=== PATIENT | female | born 1935 | race Caucasian/White ===

== ENCOUNTER 2019-03-13 11:23 | Inpatient (IN) ==
[2019-03-13] MEDS ORDERED: NS 1,000 ML IV ONE ×3 (11:30→14:33)
--- NOTE | 2019-03-13 11:32 | EKG Report ---
Test Performed on : 03/13/2019 11:26:52 AM Test Reason : syncope Blood Pressure : / mmHG Vent. Rate : 127 BPM Atrial Rate : 264 BPM P-R Int : 000 ms QRS Dur : 082 ms QT Int : 170 ms P-R-T Axes : 199 033 204 degrees QTc Int : 247 ms Atrial flutter. with variable AV block. Marked ST abnormality, possible inferior subendocardial injury Abnormal ECG When compared with ECG of 01-JUN-2017 20:10, Significant changes have occurred Unconfirmed Result
[2019-03-13] MEDS ORDERED: LOPRESSOR IV ONE ×2 (11:40→14:33)
[2019-03-13 11:59] LABS: BASO# 0.02 X1000 (0.0-0.2); BASO% 0.2 % (0.0-0.8); EOS# 0.28 X1000 (0.0-0.7); EOS% 2.7 % (0.0-10.0); HEMATOCRIT 38.2 % (37.0-47.0); LYMPH# 1.98 X1000 (1.2-3.4); LYMPH% 18.8 % (20.5-51.1); MCH 31.6 PG (27-31); MCV 92.7 FL (81-99); MONO# 1.45 X1000 (0.11-0.59); MONO% 13.8 % (1.7-9.3); MPV 11.7 FL (7.4-10.4); NEUT# 6.79 X1000 (1.4-6.5); NEUT% 64.5 % (42.2-75.2); PLT 288 X1000 (130-400); RBC 4.12 XMIL (4.2-5.4); RDW 12.7 % (11.5-14.5); WBC 10.52 X1000 (4.8-10.8)
--- NOTE | 2019-03-13 12:07 | Diag Imaging Result Doc PS360 ---
EXAM: CHEST-1 VIEW INDICATION: syncope TECHNIQUE: One view COMPARISON: None. FINDINGS: The lungs are grossly clear. There is no discrete pleural fluid collection or pneumothorax. The cardiomediastinal silhouette and central vasculature are grossly unremarkable. IMPRESSION: No evidence of acute pathology by plain radiograph. Electronically signed by Porter Luciano 03/13/2019 12:05 PM
[2019-03-13 12:27] LABS: ALB/GLOB RATIO 1.7; ALBUMIN 4.7 g/dL (3.5-5.0); CALCIUM 10.2 mg/dL (8.8-10.2); CREATININE 5.3 mg/dL (0.5-0.9); MAGNESIUM 2.5 mg/dL (1.5-2.7); PHOSPHORUS 7.4 mg/dL (2.7-4.5); POTASSIUM 3.6 mmol/L (3.5-5.1); TOTAL BILIRUBIN 0.26 mg/dL (0.20-1.00); TOTAL PROTEIN 7.5 g/dL (6.3-8.3)
[2019-03-13 13:21] LABS: URINE SOURCE CLEAN CATCH
[2019-03-13 13:32] LABS: BILIRUBIN URINE NEGATIVE (NEGATIVE); BLOOD URINE NEGATIVE (NEGATIVE); COLOR YELLOW; GLUCOSE URINE NEGATIVE (NEGATIVE); KETONE URINE NEGATIVE (NEGATIVE); LEUKOCYTES URINE MODERATE (NEGATIVE); NITRITE URINE NEGATIVE (NEGATIVE); PROTEIN URINE TRACE mg/dL (NEGATIVE); SP GRAVITY URINE 1.013; TURBIDITY URINE HAZY (CLEAR); UROBILINOGEN URINE NORMAL (NORMAL)
[2019-03-13 13:37] LABS: UR EPITHELIAL CELLS >10 /HPF (<10); URINE BACTERIA NEGATIVE /HPF; URINE RBC <10 /HPF (<10)
[2019-03-13 14:07] LABS: URINE CRYSTALS CA OXALATE PRESENT
[2019-03-13] MEDS ORDERED: ROCEPHIN 1 GM in NS 50 ML IV ONE (14:36)
--- NOTE | 2019-03-13 14:40 | PROVIDER DOCUMENTATION ---
This chart was entered by Ambar Mckoy Scribe, acting as scribe for Devaughn Luu MD. HPI-General Adult - General Chief Complaint: Syncope Stated Complaint: DR SENT AND SPOKE TO [facility] Time Seen by Provider: 03/13/19 11:32 Source: patient Allergies/Adverse Reactions: Patient Allergies Allergy/AdvReac Type Severity Reaction Status Date / Time Penicillins Allergy Intermediate RASH Verified 03/13/19 11:44 Home Medications: Home Medication List Medication Instructions Recorded Confirmed Last Taken Type Aspirin 325 mg PO DAILY 05/20/15 03/13/19 06/14/15 History Brimonidine/Timolol Ophth Soln 1 drop BOTH EYES BID 05/20/15 03/13/19 06/21/15 History [Combigan Ophth Soln] Multivitamins/Minerals [Centrum 1 each PO DAILY 05/20/15 03/13/19 06/18/15 History Silver] [place]-3 Fatty Acids [Fish Oil] 500 mg PO DAILY 05/20/15 03/13/19 06/18/15 History Garlic 1 each PO DAILY 06/18/15 03/13/19 06/17/15 History Alendronate [Fosamax] 70 mg PO Q7D 03/13/19 03/13/19 Unknown History Chlordiazepoxide/Clidinium [Librax] 1 ea PO PRN PRN 03/13/19 03/13/19 Unknown History Hydrochlorothiazide 12.5 mg PO DAILY 03/13/19 03/13/19 Unknown History Prednisolone Acetate [Pred Mild] 5 ml OPHTHALMIC (EYE) DAILY 03/13/19 03/13/19 03/12/19 23:50 History - History of Present Illness -Gen Adult Nature of Presenting Problems: Patient is a 83 year old female who presents with multiple complaints. Reports symptoms of diarrhea, decrease in appetite, weight loss, weakness, fatigue, dizziness, sore throat, and body aches. States symptoms have been present for 2 weeks. Daughter reports patient has had a 12 lbs weight loss. Denies fever and chills. History of IBS. Denies recently taking an antibiotic. Location of Pain/Injury: reports: generalized Pain Radiation: reports: no radiation Quality of Pain: reports: aching Severity: reports: mild Onset/Duration: reports: other (2 weeks) Timing: reports: still present, getting worse Associated Symptoms: reports: diarrhea, dizziness, EENT symptoms (sore throat), fatigue, loss of appetite, weakness, other (weight loss) Similar Symptoms Previously?: Yes Recently seen or treated by another doctor?: Yes Review of Systems - Adult - REVIEW OF SYSTEMS - ADULT Constitutional: reports: see HPI, fatique, weight loss (12 lbs). denies: chills, fever Eyes: reports: no symptoms reported Ears, Nose, Mouth & Throat: reports: see HPI, throat pain. denies: ear pain, sinus problem Cardiovascular: reports: no symptoms reported Respiratory: reports: no symptoms reported Gastrointestinal: reports: see HPI, diarrhea, poor appetite, vomiting (1 episode). denies: abdominal pain, nausea Genitourinary: reports: no symptoms reported Musculoskeletal: reports: see HPI, muscle aches, muscle weakness. denies: back pain, neck pain Integumentary: reports: no symptoms reported Neurological: reports: see HPI, dizziness/vertigo (dizziness). denies: heada berta/migraines, syncope Psychiatric: reports: no symptoms reported Endocrine: reports: no symptoms reported Hematologic/Lymphatic: reports: no symptoms reported Allergic/Immunologic: reports: no symptoms reported All Other Systems: Reviewed and Negative Past History - Adult - PAST MEDICAL HISTORY-ADULT Review of Records: reports: Old Records Reviewed, Social history reviewed & non-contributory. Major Childhood Illnesses: reports: denies history Cardiovascular: reports: HTN Respiratory: reports: denies history Gastrointestinal: reports: denies history Obstetrical/Gynecological: reports: denies history Genitourinary: reports: denies history Musculoskeletal: reports: denies history Neurological: reports: denies history Endocrine/Immune: reports: denies history Other Conditions: reports: denies history - PRIOR SURGERIES/PROCEDURES Surgical/Procedure History: reports: appendectomy, cholecystectomy, hysterectomy - IMMUNIZATION STATUS Childhood Immunizations: See Nurse Assessment Flu Vaccine: See Nurse Assessment - FAMILY HISTORY Family History: reviewed, not pertinent - SOCIAL HISTORY Smoking: denies Substance Use: denies Physical Exam-General - PHYSICAL EXAM-ADULT Initial Vital Signs Reviewed: Yes - CONSTITUTIONAL General Appearance: alert, no apparent distress, thin. negative: lethargic - HEAD, EARS, NOSE, MOUTH & THROAT HENMT: normocephalic/atraumatic, other (dry mucous membranes). negative: angioedema - RESPIRATORY Respiratory: chest non-tender, lungs clear, normal breath sounds. negative: crackles, rhonchi - CARDIOVASCULAR Cardiovascular: normal peripheral pulses, irregularly irregular, other (patient is going from sinus rhythm to atrial flutter while on monitor.). negative: tachycardia - GASTROINTESTINAL (ABDOMEN) Abdominal Exam: normal bowel sounds, non tender, soft. negative: guarding, rigid - MUSCULOSKELETAL Extremity: non-tender, normal inspection. negative: deformity, erythema - SKIN Integumentary: normal color, warm/dry, other (poor skin turgor.). negative: diaphoresis, ecchymosis, erythema - NEUROLOGIC Neurologic: grossly normal. negative: aphasia, facial droop - PSYCHIATRIC Psych/Mental Status: normal mood/affect, oriented x 3. negative: anxious Progress - PLAN OF CARE/RESULTS Progress/Plan/Lab Results: Vital Signs - 8 hr 03/13/19 11:24 Temperature 98.4 F Pulse Rate 123 H Respiratory Rate 18 Blood Pressure 79/54 O2 Sat by Pulse Oximetry 100 Orders Category Date Time Status Saline Loc NOW Care 03/13/19 11:29 Active NPO Diet 03/13/19 11:29 Active CHEST-1 VIEW [RAD] Stat Exams 03/13/19 11:30 Ordered CBC WITH ELECTRONIC DIFF [HEME] Stat Lab 03/13/19 11:29 Uncollected CK PROFILE [SP CHEM] Stat Lab 03/13/19 11:29 Uncollected COMPREHENSIVE METABOLIC PANEL [CHEM] Stat Lab 03/13/19 11:29 Uncollected LIPASE [CHEM] Stat Lab 03/13/19 11:29 Uncollected PRO B-NATRIURETIC PEPTIDE Stat Lab 03/13/19 11:30 Ordered TROPONIN T Stat Lab 03/13/19 11:30 Uncollected URINALYSIS W/POSS RFLX CULT [URINALYSIS] Stat Lab 03/13/19 11:30 Uncollected 0.9% Sodium Chloride Inj [Ns] 1,000 ml Med 03/13/19 11:30 Active IV 125 mls/hr EKG [EKG] Stat Ther 03/13/19 11:29 Stop Req Result Diagrams: 03/13/19 11:47 03/13/19 11:47 - REASSESSMENT Reassessment #1 Time Reassessed: 14:37 Status: improving (Patient given IVF bolus for hypotension, IV metoprolol x 2 for new onset Aflutter with RVR, and rate is controlled. GIven IV rocephin for UTI (stated can take cephalosporins).) - EKG 1 Time of EKG reading by physician:: 11:26 EKG Read and Signed by:: Devaughn Luu EKG Interpretation (*Must complete 3 of following elements*): Abnormal Rate: 127 Rhythm: atrial flutter with variable AV block [place]: normal Comments: marked ST abnormality, possible inferior subendocardial injury. - XRAY 1 XRAY Study: Chest Impression: See EMR Report ( EXAM: CHEST-1 VIEW INDICATION: syncope TECHNIQUE: One view COMPARISON: None. FINDINGS: The lungs are grossly clear. There is no discrete pleural fluid collection or pneumothorax. The cardiomediastinal silhouette and central vasculature are grossly unremarkable. IMPRESSION: No evidence of acute pathology by plain radiograph. Electronica lly signed by Porter Luciano 03/13/2019 12:05 PM 03/13/19 1205 Interpreting Physician: Porter Luciano MD Dictated Date/Time: 03/13/19 1204 cc: Amanda Amaya; Shy Lopez) - CONSULTS/PCP/HOSPITALIST Notification #1 *Consult/PCP/Hospitalist*: DESTINEE Rutledge Time Discussed: 14:38 Consult Disposition: Will see in ED, Admit Departure - Departure Date of Disposition Decision: 03/13/19 Time of Disposition Decision: 14:38 DIAGNOSIS: Syncope, near, New onset atrial flutter, Acute UTI (urinary tract infection) Hypotension, unspecified Qualifiers: Hypotension type: idiopathic hypotension Qualified Code(s): I95.0 - Idiopathic hypotension Acute renal failure (ARF) Qualifiers: Acute renal failure type: unspecified Qualified Code(s): N17.9 - Acute kidney failure, unspecified Disposition: ADMITTED INPATIENT 09 Certified Medical Emergency: Emergent Condition: Fair Referrals and Follow-Ups: None,PCP [NON-STAFF PROVIDER] - - Critical Care Note This patient required my direct & personal management of CC.: Yes Total Time (mins): 45 (CVS/Renal compromise) Critical Care Statement: This patient required my direct personal management to treat or rule out processes, the absence of which, could potentiallly result in sudden, clinically significant life or limb threatening deterioration. Attestation - Physician/ MIRANDA Attestation Patient care was provided by Advanced Practice Provider:: No The physician spent face to face time with patient:: Yes Advanced Practice Provider documentation review:: Supervising physician onsite and consulted in the evaluation and care of this patient. The physician did have a face to face encounter with the patient. This chart was documented by the indicated scribe, (Ambar Mckoy Scribe) and accurately reflects the services I performed and decisions made by me, Devaughn Luu MD, as attested by the provider's signature.
[2019-03-13] MEDS ORDERED: ZOFRAN IV PRN (15:27)
--- NOTE | 2019-03-13 15:31 | ED EKG INTERP ---
EKG Interpretation - EKG Time of EKG reading by physician:: 15:30 EKG Read and Signed by:: Devaughn Luu EKG Interpretation (*Must complete 3 of following elements*): Abnormal Rate: 90 Rhythm: atrial fibrillation, rate controlled [place]: normal QRS: normal, other (early transition) ST Wave: normal Prior EKG Comparison: changes noted Attestation - Physician/ MIRANDA Attestation Patient care was provided by Advanced Practice Provider:: No The physician spent face to face time with patient:: Yes Advanced Practice Provider documentation review:: Supervising physician onsite and consulted in the evaluation and care of this patient. The physician did have a face to face encounter with the patient.
--- NOTE | 2019-03-13 15:46 | EKG Report ---
Test Performed on : 03/13/2019 3:08:20 PM Test Reason : near syncope Blood Pressure : / mmHG Vent. Rate : 090 BPM Atrial Rate : 357 BPM P-R Int : 000 ms QRS Dur : 076 ms QT Int : 378 ms P-R-T Axes : 000 036 010 degrees QTc Int : 462 ms Atrial fibrillation. Abnormal ECG When compared with ECG of 13-MAR-2019 11:26, (Unconfirmed) Atrial fibrillation. has replaced Atrial flutter. ST no longer depressed in Inferior leads ST no longer depressed in Anterolateral leads T wave inversion no longer evident in Anterolateral leads Unconfirmed Result
[2019-03-13] MEDS ORDERED: LOPRESSOR IV PRN (16:42)
[2019-03-13] MEDS ORDERED: NS 1,000 ML IV SCH (16:45)
[2019-03-13] MEDS ORDERED: LOVENOX SUBQ ONE (16:58)
[2019-03-13] MEDS: NS 1,000 ML IV SCH (17:34)
[2019-03-13 19:04] LABS: UR PROT RANDOM 20.8 mg/dL
[2019-03-13] MEDS: COMBIGAN OPHTH SOLN BOTH EYES SCH (22:29)
--- NOTE | 2019-03-14 00:09 | ECHO REPORT ---
ORDER DATE: 03/13/2019 MEASUREMENTS: Septal thickness 1.1, left ventricular internal diameter in diastole 3.2, posterior wall thickness 1.0, left ventricular internal diameter in systole 1.9. Aortic root 3.0. Left atrium 4.0. SUMMARY: 1. Adequate quality study. 2. Mild sclerosis of trileaflet aortic valve demonstrated with normal aortic valve opening evident. Peak gradient across aortic valve is less than 10 mmHg. Aortic root is normal in size. There is mild dilatation of proximal ascending aorta. Moderate mitral annular calcification is demonstrated. There is trace mitral regurgitation. Tricuspid and pulmonic valves are without evidence of structural abnormality with mild tricuspid regurgitation and mild pulmonic insufficiency. Estimated systolic PA pressure by Doppler is 45 mmHg, suggesting mild pulmonary hypertension. 3. Normal left ventricular dimensions demonstrated. Estimated left ejection fraction appears to be at least 70%. No regional wall motion abnormalities are evident. Left atrium is mildly enlarged. Right atrium and right ventricle are normal in size with grossly preserved right ventricular systolic function. 4. No pericardial effusion. 5. Appearance of inferior vena cava suggests normal central venous pressure. CONCLUSIONS: 1. Mild aortic valve sclerosis without stenosis. 2. Mild dilatation of proximal ascending aorta. 3. Moderate mitral annular calcification with trace mitral regurgitation. 4. Mild tricuspid regurgitation with mild pulmonary hypertension by Doppler. 5. Estimated left ejection fraction at least 70%. 6. Mild left atrial enlargement. cc: MD Radha Frye CRNP
[2019-03-14] MEDS: NS 1,000 ML IV SCH ×4 (01:21→18:12)
--- NOTE | 2019-03-14 02:00 | HISTORY AND PHYSICAL ---
ADMITTING PHYSICIAN: Cosmo Ellis MD. CHIEF COMPLAINT: Syncope. HISTORY OF PRESENT ILLNESS: This is an 83-year-old female with a prior history of hypertension and glaucoma. She presents to the emergency room with a family member here for a syncopal episode. She reports having nausea, vomiting, and diarrhea for 5 days. The family report that the patient has had decrease in appetite, a 12 pounds weight loss with increasing weakness and fatigue over the last 3 to 4 weeks. She was evaluated by her primary care physician, found to have a blood pressure of 80/40; therefore, they sent her to the emergency room for further evaluation. On arrival, she was found to be in atrial flutter at a rate of 127 bpm, for which she was given 10 mg total of Lopressor IV, and heart rates have decreased to the 80s to 90s. PAST MEDICAL HISTORY: Hypertension, glaucoma, irritable bowel syndrome. PAST SURGICAL HISTORY: Appendectomy, cholecystectomy, hysterectomy, right knee, and right wrist surgery. ALLERGIES: Penicillin causes a rash in her childhood. SOCIAL HISTORY: She denies alcohol, tobacco, or illicit drug use. REVIEW OF SYSTEMS: Discussed with the patient with pertinent positives stated in HPI. She denied any true syncope, any chest pain or palpitations, any shortness of breath, cough, fever, chills, any night sweats, any black or bloody vomitus or stools, any hematuria, dysuria, frequency, urgency. PHYSICAL EXAMINATION: GENERAL: This is an 83-year-old female who is lying in the stretcher in the emergency room in no distress. VITAL SIGNS: Blood pressure is 137/59 with a heart rate of 92, respirations are 17, temperature is 98.4 degrees, with O2 saturations that are 94 to 96 percent, and ranging 90 to 95 percent on room air. HEENT: Head is normocephalic, atraumatic. Mucous membranes are dry. NECK: Supple with trachea midline. CARDIOVASCULAR: Irregularly, irregular rate and rhythm. S1 and S2 appreciated. The calves are nontender bilateral with peripheral pulses palpable x4 extremities. PULMONARY: Breath sounds are clear with no increased work of breathing noted. Chest rises and falls symmetric to respiration. GASTROINTESTINAL: Abdomen is soft, nontender, nondistended. Bowel sounds in all 4 quadrants. GENITOURINARY: She has no CVA nor suprapubic tenderness. SKIN: Warm and dry with poor turgor. NEUROLOGIC: She is alert and oriented. LABS: WBC is 10.5 with hemoglobin 13, hematocrit 38.2, platelets of 288,000. Sodium 132, potassium 3.6, BUN 91, creatinine 5.3 with a glucose of 137. Troponin is negative on multiple occasions. Urinalysis reveals moderate leukocytes with 10 to 20 microscopic white blood cells. Blood cultures, urine culture and strep are all negative. Chest x-ray reveals no evidence of acute pathology. ASSESSMENT AND PLAN: 1. Near-syncope. 2. New onset of atrial flutter/atrial fibrillation. 3. Hypotension secondary to dehydration as well as dysrhythmia. 4. Acute kidney injury, likely secondary to dehydration. 5. Nausea, vomiting, and diarrhea x5 days. 6. Urinary tract infection. 7. Metabolic acidosis secondary to diarrhea. PLAN: The patient will be admitted to the step-down unit. She will be placed on telemetry. continue with IV hydration, giving fluids at 100 an hour following the 2 L bolus that she received in the emergency room. supplemental oxygen and trend saturations. Juárez was placed. accurate I and O with daily weights. orthostatic vital signs q.12 hours. identify her home medications and continue as appropriate. Rocephin, and any further antibiotics will be culture driven. trend cardiac profile and troponin. renal profile daily as well as a CBC in the morning. check urine electrolytes. Clear liquids as tolerated. echocardiogram. We will Lovenox 30 mg due to her renal function. X 1 dose,cardiology has been consulted. Anticoagulation per cardiology. Further treatments pending hospital course. Plan was discussed with Dr. Ellis. Patient seen and examined by me face to face, all the laboratory, vitals signs and images were reviewed, patient presented to the emergency department after a syncopal episode, apparently she has been having nausea, vomiting and diarrhea for a few days, also associated with hypotension, she came to the emergency department dehydrated, acute kidney injury, likely that is the cause of her syncope, on top of those findings was found to have a fib/flutter, she will be admitted, has to be hydrated, we will start Lovenox renally dosed, follow cardiac enzymes, antibiotics for possible UTI, she seems to be a little be better after getting some fluids, telemetry, Cardiology will be consulted, I agree with the RFID DEVELOPER's assessment and plan, Cosmo Hayward Debbie, MD. Dictated by DESTINEE Paez for Cosmo Ellis MD cc: DESTINEE Paez MD [facility]
[2019-03-14 08:01] LABS: HEMATOCRIT 30.6 % (37.0-47.0); MCH 31.1 PG (27-31); MCHC 32.7 g/dL (33-37); MPV 11.6 FL (7.4-10.4); RBC 3.22 XMIL (4.2-5.4); RDW 12.6 % (11.5-14.5); WBC 5.14 X1000 (4.8-10.8)
--- NOTE | 2019-03-14 08:31 | EKG Report ---
Test Performed on : 03/14/2019 08:20:39 AM Test Reason : aflutter vs sr Blood Pressure : / mmHG Vent. Rate : 068 BPM Atrial Rate : 068 BPM P-R Int : 210 ms QRS Dur : 082 ms QT Int : 438 ms P-R-T Axes : 025 015 -06 degrees QTc Int : 465 ms Sinus rhythm. with 1st degree AV block. Possible Left atrial enlargement Borderline ECG When compared with ECG of 13-MAR-2019 15:08, (Unconfirmed) Sinus rhythm. has replaced Atrial fibrillation. Confirmed by Mariana VILLANUEVA, Rivera Hawkins ([id number]) on 03/14/2019 9:11:11 AM
[2019-03-14] MEDS ORDERED: PREDNISOLONE ACETATE ophthalmic (eye) SCH (09:00)
[2019-03-14] MEDS ORDERED: ASPIRIN PO SCH (09:00)
[2019-03-14 09:13] LABS: ALBUMIN 3.9 g/dL (3.5-5.0); CALCIUM 8.6 mg/dL (8.8-10.2); CREATININE 2.4 mg/dL (0.5-0.9); PHOSPHORUS 4.6 mg/dL (2.7-4.5); POTASSIUM 3.6 mmol/L (3.5-5.1)
[2019-03-14] MEDS: COMBIGAN OPHTH SOLN BOTH EYES SCH ×2 (09:23→21:20)
[2019-03-14] MEDS: FISH OIL CONCENTRATE PO SCH (09:23)
[2019-03-14] MEDS ORDERED: ELIQUIS PO ONE (10:16)
[2019-03-14] MEDS: TYLENOL PO PRN (12:13)
--- NOTE | 2019-03-14 14:20 | PROGRESS NOTE ---
DATE: 03/14/2019 SUBJECTIVE: This patient is feeling much better. She is tolerating p.o. I will advance the diet to a full liquid diet. She will be evaluated by Cardiology Department. New onset atrial fibrillation, she came in with RVR that was controlled with metoprolol. Kidney function getting better. OBJECTIVE: Vital Signs: Temperature 98.2 degrees, pulse 67, respiratory rate 16, blood pressure 138/92, and oxygen saturation 100% on 2 liters of nasal cannula. HEENT: Head normocephalic, no trauma. PERRLA. Neck: Supple. No JVD. No masses. Central trachea. Chest: Clear to auscultation. No wheezing. No rales. Abdomen: Soft, nontender, nondistended. No hepatosplenomegaly. Extremities: No edema, no clubbing, no cyanosis. Cardiovascular: Irregularly irregular rate and rhythm. Neurological: She is alert. She is oriented. No focal deficits, but some weakness. LABORATORY DATA: WBC 5.1, hemoglobin 10, hematocrit 30.6, and platelets 249,000. Sodium 143, potassium 3.6, chloride 112, bicarbonate 17, BUN 67, creatinine 2.4, glucose 85, calcium 8.6, phosphorus 4.6. ASSESSMENT AND PLAN: 1. Near syncope, likely due to dehydration/hypotension. This probably is much better. Initially, this patient's blood pressure was 79/54 and now has been more stable, last one 138/92. I have requested physical therapy to start working with this patient. 2. New onset atrial fibrillation/atrial flutter with rapid ventricular response, controlled with beta-blockers as needed. Cardiology Department has been consulted. Probably this patient will need to be on anticoagulation. I will give her a dose of Eliquis 2.5 now, and then I will wait for Cardiology's recommendations, the reason why I am giving her a low dose is because of her acute kidney injury. 3. Hypotension secondary to severe dehydration, as well as dysrhythmia. This is much better. No more hypotension. 4. Acute kidney injury due to severe dehydration, getting better. 5. Nausea, vomiting, and diarrhea x5 days, resolved. She is tolerating oral intake. 6. Possible urinary tract infection. She has been placed on ceftriaxone. Even though she is allergic to penicillin, she is not having any kind of reaction. Urine culture has been taken and negative so far. 7. Metabolic acidosis, multifactorial. This is getting stable. cc: Cosmo Ellis MD
[2019-03-14] MEDS: ROCEPHIN 1 GM in NS 50 ML IV SCH (15:08)
--- NOTE | 2019-03-14 20:44 | CARDIOLOGY CONSULTATION ---
DATE: 03/14/2019 CHIEF COMPLAINT: Lightheadedness, dizziness, diarrhea. HISTORY OF PRESENT ILLNESS: Ms. Carreno is an 83-year-old female with a history of hypertension and glaucoma. She has been experiencing a significant amount of nausea, vomiting, and diarrhea for close to a week prior to presentation. She has lost weight secondary to this and has an increasing trouble with fatigue. She was seen by her primary care physician, and was noted to be hypotensive with systolics in the 80s and a heart rate up to around 127. When she was in the emergency room, she was noted to be in what appears to be atrial flutter. She was given 1 dose of Lopressor, which converted her relatively quickly. Her initial creatinine was in the 5s. Since that time, she has been hydrated and her creatinine is down to 2.4. She has maintained sinus. She does have some trouble with falls, but has not had one for 6 months. PAST MEDICAL HISTORY: 1. Hypertension. 2. Glaucoma. 3. Irritable bowel syndrome. SOCIAL HISTORY: No alcohol, tobacco, or illicit drug use. FAMILY HISTORY: Mother had a history of a stroke. REVIEW OF SYSTEMS: A 10-system review of systems is negative, except for those mentioned in the HPI. PHYSICAL EXAMINATION: Vital signs: Afebrile, heart rate 59, blood pressure 136/54. General: No acute distress. HEENT: Oropharynx is moist. Poor dentition. Eye examination shows pink conjunctivae, white sclerae. Neck: No obvious thyromegaly or thyroid tenderness. Cardiovascular: Sounds to be in a regular rate and rhythm. She has no obvious murmurs. She has no S3. She has no lower extremity edema. Chest: Clear bilaterally. No increased work of breathing. Abdomen: Soft, nontender, nondistended. No obvious organomegaly. Skin: Warm and dry throughout without any rashes. Neurological: Moving all extremities well. PERTINENT DATA: EKG on presentation shows what appears to be atrial flutter, rate of 127 beats per minute. Subsequent EKG occurring on the at 1508, again shows what appears to be atrial fibrillation, rate of 90 beats per minute. Her ultimate EKG occurring on the at 0820, shows sinus mechanism. Chest x-ray shows no evidence of acute pathology. Lab data: White count 5.1, hematocrit 30, platelet count is 249,000. Sodium 143, potassium 3.6, BUN 67, creatinine 2.4. Cardiac enzymes negative. TSH is 1.68. ASSESSMENT: Ms. Carreno is an 83-year-old female who presented with severe dehydration secondary to diarrhea. She had new-onset atrial fibrillation. PLAN: She is in sinus rhythm now. I discussed with her fall risks as well as her stroke risks. She has supportive family around. She is willing to undergo physical therapy, as well as balance and gait fall prevention training at home. Her family is close by and at hand. The patient has not had a significant fall in the last 6 months. We will stop her aspirin and try her on low-dose Eliquis at 2.5 b.i.d. I believe that most likely her hematocrit drop since presentation is likely hemodilution. We will start her on a low dose of Toprol in the morning. If she is stable, she can likely be discharged from a cardiovascular standpoint. Her echocardiogram on presentation showed a hyperdynamic ejection fraction. cc: Josef Hurd MD
[2019-03-15] MEDS: NS 1,000 ML IV SCH ×2 (02:08→06:30)
[2019-03-15 06:18] LABS: RBC 3.28 XMIL (4.2-5.4); WBC 5.87 X1000 (4.8-10.8)
[2019-03-15 06:19] LABS: BASO# 0.02 X1000 (0.0-0.2); BASO% 0.3 % (0.0-0.8); EOS# 0.29 X1000 (0.0-0.7); EOS% 4.9 % (0.0-10.0); HEMATOCRIT 30.5 % (37.0-47.0); IMM GRAN# 0.02 X1000 (0.0-0.04); IMM GRAN% 0.3 % (0.0-0.5); LYMPH# 1.58 X1000 (1.2-3.4); LYMPH% 26.9 % (20.5-51.1); MCH 30.5 PG (27-31); MCHC 32.8 g/dL (33-37); MONO# 0.73 X1000 (0.11-0.59); MONO% 12.4 % (1.7-9.3); MPV 11.4 FL (7.4-10.4); NEUT# 3.23 X1000 (1.4-6.5); NEUT% 55.2 % (42.2-75.2); PLT 268 X1000 (130-400); RDW 12.8 % (11.5-14.5)
[2019-03-15 06:38] LABS: ALBUMIN 3.7 g/dL (3.5-5.0); CALCIUM 8.2 mg/dL (8.8-10.2); CREATININE 1.1 mg/dL (0.5-0.9); PHOSPHORUS 2.4 mg/dL (2.7-4.5); POTASSIUM 3.2 mmol/L (3.5-5.1)
[2019-03-15] MEDS ORDERED: KLOR-CON PO ONE (08:18)
--- NOTE | 2019-03-15 08:41 | EKG Report ---
Test Performed on : 03/15/2019 06:22:32 AM Test Reason : afib, dehydration Blood Pressure : / mmHG Vent. Rate : 051 BPM Atrial Rate : 051 BPM P-R Int : 224 ms QRS Dur : 082 ms QT Int : 470 ms P-R-T Axes : 034 038 023 degrees QTc Int : 433 ms Sinus bradycardia. with 1st degree AV block. Otherwise normal ECG When compared with ECG of 14-MAR-2019 08:20, No significant change was found Confirmed by Mariana VILLANUEVA, Rivera Hawkins ([id number]) on 03/16/2019 8:25:35 AM
[2019-03-15] MEDS: ELIQUIS PO SCH ×2 (08:56→20:11)
[2019-03-15] MEDS: COMBIGAN OPHTH SOLN BOTH EYES SCH ×2 (08:56→20:11)
[2019-03-15] MEDS: FISH OIL CONCENTRATE PO SCH (08:56)
[2019-03-15] MEDS ORDERED: ASPIRIN PO SCH (09:00)
[2019-03-15] MEDS ORDERED: NORVASC PO SCH (09:00)
[2019-03-15] MEDS ORDERED: 1/2 NS 1,000 ML IV SCH (11:00)
[2019-03-15] MEDS ORDERED: MAGNESIUM SULFATE 2 GM/S.W.I. 2 GM/50 ML IVPB IV ONE (11:55)
[2019-03-15] MEDS: POTASSIUM CHLORIDE 20 MEQ in 1/2 NS 1,000 ML IV SCH (11:58)
[2019-03-15] MEDS: TOPROL XL PO SCH (12:17)
--- NOTE | 2019-03-15 14:11 | CARDIOLOGY PROGRESS NOTE ---
DATE: 03/15/2019 CHIEF COMPLAINT: Irregular heartbeat and weakness. SUBJECTIVE: Ms. Carreno is feeling much better today. She has converted to sinus bradycardia. They were concerned about giving her the scheduled dose of beta irving this morning because of the bradycardia. At any rate she feels very much like going home. OBJECTIVE: Vital Signs: Temperature is 97.8. Pulse has been running in the low 50s, however, when I examined her it was 60. Blood pressure is 71/52. Respirations are 18. General: She is awake, alert, in no distress, elderly, and very talkative. HEENT: Unremarkable. Respiratory: Chest sounds clear to auscultation and percussion. Cardiac: Heart sounds are regular and rhythmic. No gallop or murmur. Abdomen: The abdomen is nontender. Extremities: The extremities show no edema. Neurological: She follows commands and moves all extremities. LABORATORY DATA: Blood work this morning: Sodium 145, potassium 3.2, BUN 39, and creatinine 1.1. Magnesium is 1.5. IMPRESSION: 1. Patient who presented with acute renal failure and dehydration. 2. Paroxysmal atrial fibrillation with subsequent bradycardia. The patient may have sick sinus syndrome. 3. Aortic valvular sclerosis without stenosis. 4. History of hypertension. 5. Prior history of a urinary tract infection. RECOMMENDATIONS: At this time we would suggest to continue the present medical therapy and try to optimize all of her electrolytes. Observe her 1 more night and if by tomorrow she is stable perhaps she may be able to go home. I a little hesitant to let her go home because she is still technically acidotic based on her low carbon dioxide on BMP done today. I believe we need to optimize her electrolytes and we will reassess her in the morning. We will observe her on telemetry overnight. The patient and her daughter agree to stay one more night. cc: Rl Goodwin MD
--- NOTE | 2019-03-15 14:35 | PROGRESS NOTE ---
DATE: 03/15/2019 SUBJECTIVE: This patient is feeling better. She is tolerating p.o. I will advance the diet to a GI soft diet, low salt. She was bradycardic mostly during the night even without beta blockers. Cardiology Department will evaluate this patient. Probably this patient will be discharged in the next 24 to 48 hours. OBJECTIVE: Vital Signs: Temperature 97.8 degrees, pulse 48 at 4 a.m., 51 at 7:14 a.m., respiratory rate 15, blood pressure 171/52 oxygen saturation 94% on room air. HEENT: Head normocephalic, no trauma. PERRLA. Neck: Supple. No JVD. No masses. Central trachea. Chest: Clear to auscultation. No wheezing. No rales. Abdomen: Soft, nontender, nondistended, no hepatosplenomegaly. Extremities: No edema, no clubbing, no cyanosis. Cardiovascular: Regular rate and rhythm. Neurological: She is alert. She is oriented. No focal deficits but some generalized weakness. LABORATORY: WBC 5.8, hemoglobin 10, hematocrit 30.5, platelets 268,000. Sodium 145, potassium 3.2, chloride 114, bicarbonate 16, BUN 39, creatinine 1.1, glucose 92, calcium 8.2, phosphorus 2.4, magnesium 1.5. ASSESSMENT AND PLAN: 1. Near syncope, likely due to severe dehydration/hypotension. This is much better. Blood pressure actually is elevated. Continue physical therapy. No more near syncopal episodes. 2. New onset atrial fibrillation/atrial flutter with rapid ventricular response. Now, she is in sinus rhythm. Cardiology Department already evaluated this patient. They have placed this patient on Eliquis 2.5 twice a day and also beta blockers. Her heart rate has been in the 40s and 50s, so I will wait for recommendations. 3. Hypotension secondary to severe dehydration, resolved. 4. Acute kidney injury due to severe dehydration. This is getting much better. Continue with gentle IV fluids. 5. Nausea, vomiting and diarrhea. She is tolerating p.o. She is still having some diarrhea, but I believe it is less frequent. 6. Possible urinary tract infection. Continue with ceftriaxone. She is not having any kind of reaction even though she is allergic to penicillin. 7. Metabolic acidosis, multifactorial, stable. cc: Cosmo Ellis MD
[2019-03-15] MEDS: ROCEPHIN 1 GM in NS 50 ML IV SCH (14:46)
[2019-03-15] MEDS: TYLENOL PO PRN (14:46)
[2019-03-15 15:20] LABS: URINE SOURCE CLEAN CATCH
[2019-03-15 15:27] LABS: BILIRUBIN URINE NEGATIVE (NEGATIVE); BLOOD URINE NEGATIVE (NEGATIVE); COLOR STRAW; GLUCOSE URINE NEGATIVE (NEGATIVE); KETONE URINE NEGATIVE (NEGATIVE); LEUKOCYTES URINE NEGATIVE (NEGATIVE); NITRITE URINE NEGATIVE (NEGATIVE); PROTEIN URINE NEGATIVE (NEGATIVE); SP GRAVITY URINE 1.009; TURBIDITY URINE CLEAR (CLEAR); UROBILINOGEN URINE NORMAL (NORMAL)
[2019-03-15 15:28] LABS: UR EPITHELIAL CELLS <10 /HPF (<10); URINE BACTERIA NEGATIVE /HPF; URINE RBC <10 /HPF (<10); URINE WBC <10 /HPF (<10)
[2019-03-15] MEDS: NORVASC PO SCH (20:11)
[2019-03-16] MEDS: TYLENOL PO PRN (02:17)
[2019-03-16] MEDS: POTASSIUM CHLORIDE 20 MEQ in 1/2 NS 1,000 ML IV SCH (05:26)
[2019-03-16 06:36] LABS: ALBUMIN 3.5 g/dL (3.5-5.0); CALCIUM 8.7 mg/dL (8.8-10.2); CREATININE 0.9 mg/dL (0.5-0.9); PHOSPHORUS 2.1 mg/dL (2.7-4.5); POTASSIUM 3.9 mmol/L (3.5-5.1)
--- NOTE | 2019-03-16 07:19 | EKG Report ---
Test Performed on : 03/16/2019 06:29:32 AM Test Reason : PAROXYSMAL ATRIAL FIBRILLATION Blood Pressure : / mmHG Vent. Rate : 048 BPM Atrial Rate : 048 BPM P-R Int : 210 ms QRS Dur : 078 ms QT Int : 476 ms P-R-T Axes : 013 014 026 degrees QTc Int : 425 ms Sinus bradycardia. with 1st degree AV block. Otherwise normal ECG When compared with ECG of 15-MAR-2019 06:22, (Unconfirmed) No significant change was found Confirmed by Mariana VILLANUEVA, Rivera Hawkins ([id number]) on 03/16/2019 8:34:12 AM
[2019-03-16] MEDS: ELIQUIS PO SCH (08:12)
[2019-03-16] MEDS: FISH OIL CONCENTRATE PO SCH (08:13)
[2019-03-16] MEDS: TOPROL XL PO SCH (08:13)
[2019-03-16] MEDS: NORVASC PO SCH (08:14)
[2019-03-16] MEDS: COMBIGAN OPHTH SOLN BOTH EYES SCH (08:15)
[2019-03-16 08:48] VITALS: BP 162/64
[2019-03-16] MEDS ORDERED: NORVASC PO SCH (09:00)
--- NOTE | 2019-03-16 09:40 | PROGRESS NOTE ---
DATE: 03/16/2019 SUBJECTIVE: The patient is feeling much better. She is tolerating p.o. Her diet has been advanced. She has been having some episodes of bradycardia but she is completely asymptomatic and mostly were when she was sleeping. She has chronic diarrhea due to IBS and it looks like she is back to her baseline. OBJECTIVE: Vital Signs: Temperature 97.3 degrees, pulse 67, respiratory rate 18, blood pressure 174/59, oxygen saturation 100% on room air. HEENT: Head normocephalic. No trauma. PERRLA. Neck: Supple. No JVD. No masses. Central trachea. Chest: Clear to auscultation. No wheezing. No rales. Abdomen: Soft, nontender, nondistended. No hepatosplenomegaly. Extremities: No edema. No clubbing. No cyanosis. Cardiovascular: RRR. Neurological Examination: The patient is alert. She is oriented. No focal deficits. Laboratory: Sodium 143, potassium 3.9, chloride 115, bicarbonate 16, BUN 22, creatinine 0.9, glucose 84, calcium 8.7, phosphorus 2.1, albumin 3.5. ASSESSMENT AND PLAN: 1. Near syncope due to severe dehydration/hypotension, resolved. 2. New onset atrial fibrillation/atrial flutter with rapid ventricular response, resolved. Now she is on normal sinus rhythm. Cardiology department already evaluated this patient. She has been placed on anticoagulation and beta blockers. 3. Hypotension secondary to severe dehydration, resolved. 4. Acute kidney injury due to severe dehydration and hypotension, resolved. 5. Nausea and vomiting, resolved. She is tolerating oral intake. 6. Chronic diarrhea with a history of irritable bowel syndrome, aware. She is still having some diarrhea but much better compared with last week and admission. 7. The urine culture did not show any urinary tract infection so ceftriaxone will be stopped. 8. Metabolic acidosis, multifactorial, likely due to diarrhea and decreased bicarbonate. 9. Overall, this patient is doing much better. She will be discharged home today. She will take oral rehydration solution if she is having diarrhea. Also, she will continue with her Imodium. I have started this patient on a new blood pressure medication, amlodipine. She has been instructed to take it twice a day but if her blood pressure is stable with just one dose during the day, she can continue just with one time a day. She will need to follow up with her primary doctor in 4 to 5 days, do new lab work, and probably she can start this patient again back on her diuretics and lisinopril. 10. Time discharging this patient around 35 minutes. Discussion has been at the bedside with the family and the patient. They seemed to understand all the further management. cc: Cosmo Ellis MD
--- NOTE | 2019-03-16 16:34 | DISCHARGE SUMMARY ---
ADMISSION DATE: 03/13/2019 DISCHARGE DATE: 03/16/2019 DIAGNOSES: 1. Near syncope due to severe dehydration, hypotension. Resolved. 2. New onset atrial fibrillation/atrial flutter with rapid ventricular response. Resolved. She is now in sinus rhythm. 3. Hypotension secondary to severe dehydration, resolved. 4. Acute kidney injury secondary to severe dehydration and hypotension, resolved. 5. Nausea and vomiting, resolved. 6. Chronic diarrhea with a history of irritable bowel syndrome. Aware. 7. Urine culture revealed no growth. 8. Metabolic acidosis, multifactorial, likely due to diarrhea and decreased bicarbonate. 9. History of hypertension. CONSULTANTS: Dr. Josef Hurd. DIAGNOSTICS: 1. Chest x-ray revealed no evidence of acute pathology. 2. Echocardiogram: Mild aortic valve sclerosis without stenosis. Mild dilatation of the proximal ascending aorta, moderate mitral annular calcification with trace mitral regurgitation, mild tricuspid regurgitation with mild pulmonary hypertension by Doppler. Estimated ejection fraction 70% with mild left atrial enlargement. HOSPITAL COURSE: Ms. Carreno presented to the emergency room complaining of lightheadedness, dizziness, and diarrhea. She was found to be hypotensive with systolics in the 80s and heart rates in the 120s to 130s. She was in what appeared to be atrial flutter. After being given 1 dose of Lopressor, she converted back to a sinus rhythm and has remained there since. Creatinine was in the 5's on presentation. She was given IV hydration, and renal toxic medications were held, and today her creatinine is 0.8. She does have a history of chronic diarrhea secondary to IBS. It was felt that this led to her dehydration and her hypotension. It was felt that she could have a urinary tract infection on admission. She was initially started on Rocephin. Once culture revealed no growth, antibiotics were discontinued. Eliquis 2.5 twice a day as well as Toprol-XL 25 mg daily were started for the atrial fibrillation/flutter, which she has tolerated well; she was given per Cardiology. DISCHARGE VITAL SIGNS: Blood pressure is 170/59 with a heart rate of 57. Respirations are 18. Temperature is 97.3 degrees oral with room air saturations 100%. DISCHARGE PHYSICAL EXAMINATION: Cardiovascular: Regular rate and rhythm. S1, S2 appreciated. She has no lower extremity edema. Calves are nontender bilateral with peripheral pulses palpable x4 extremities. Pulmonary: Breath sounds are clear with no increased work of breathing noted. Gastrointestinal: Abdomen is soft, nontender, nondistended with bowel sounds in all 4 quadrants. Neurologic: She is alert and oriented x3. Skin: Warm and dry. DISCHARGE MEDICATIONS: 1. Centrum Silver 1 p.o. daily. 2. Toprol-XL 25 mg 1 p.o. daily. 3. Garlic 1 daily. 4. Librax 1 p.o. p.r.n. as directed. 5. Aspirin 81 mg p.o. daily. 6. Eliquis 2.5 mg p.o. b.i.d. 7. Fosamax 70 mg p.o. every 7 days. 8. Prednisolone acetate 5 mL drops as directed. 9. Fish oil caplets 500 mg p.o. daily. 10. Combigan ophthalmic solution 1 drop both eyes b.i.d. 11. Amlodipine 5 mg p.o. b.i.d. FOLLOWUP: Dr. Joesf Hurd. She is to call to arrange a follow-up in 1 month, sooner if needed. She has been instructed to return to the emergency room for any syncope, dizziness, chest pain, palpitations, shortness of breath, cough, fever, chills, temperature greater than 101, nausea, vomiting, constipation, any black or bloody vomitus or stools, or any questions or concerns that she may have. She is being discharged home in stable condition with family members. TIME SPENT: This is a greater than 30 minute discharge. Dictated by DESTINEE Paez for Cosmo Ellis MD cc: DESTINEE Paez MD
== END 2019-03-16 11:22 | disposition home health service (06) | DRG 683 ==
LOC: SUPCPDRO → ED 11:23 → 3N 16:17 → SUATTDRO 16:17 → EDIPHOLD 16:59 → 2N 17:48
PROVIDERS: ATTEND Internal Medicine

== ENCOUNTER 2019-04-23 19:01 | Inpatient (IN) ==
[2019-04-23] MEDS ORDERED: NS 1,000 ML IV ONE (19:22)
[2019-04-23 20:25] LABS: BASO# 0.02 X1000 (0.0-0.2); BASO% 0.2 % (0.0-0.8); EOS% 1.1 % (0.0-10.0); HEMOGLOBIN 11.3 g/dL (12.0-16.0); IMM GRAN# 0.04 X1000 (0.0-0.04); IMM GRAN% 0.5 % (0.0-0.5); LYMPH# 2.07 X1000 (1.2-3.4); LYMPH% 23.7 % (20.5-51.1); MCH 30.4 PG (27-31); MCHC 33.2 g/dL (33-37); MCV 91.4 FL (81-99); MONO# 1.36 X1000 (0.11-0.59); MONO% 15.6 % (1.7-9.3); MPV 10.5 FL (7.4-10.4); NEUT# 5.15 X1000 (1.4-6.5); NEUT% 58.9 % (42.2-75.2); PLT 373 X1000 (130-400); RBC 3.72 XMIL (4.2-5.4); RDW 13.1 % (11.5-14.5); WBC 8.74 X1000 (4.8-10.8)
[2019-04-23 20:51] LABS: URINE SOURCE CLEAN CATCH
[2019-04-23 20:53] LABS: ALB/GLOB RATIO 1.3; ALBUMIN 4.5 g/dL (3.5-5.0); CALCIUM 9.8 mg/dL (8.8-10.2); CREATININE 2.5 mg/dL (0.5-0.9); POTASSIUM 2.9 mmol/L (3.5-5.1); TOTAL BILIRUBIN 0.39 mg/dL (0.20-1.00); TOTAL PROTEIN 7.9 g/dL (6.3-8.3)
[2019-04-23 21:07] LABS: BILIRUBIN URINE NEGATIVE (NEGATIVE); BLOOD URINE NEGATIVE (NEGATIVE); COLOR YELLOW; GLUCOSE URINE NEGATIVE (NEGATIVE); KETONE URINE NEGATIVE (NEGATIVE); LEUKOCYTES URINE SMALL (NEGATIVE); NITRITE URINE NEGATIVE (NEGATIVE); PH URINE 5.5; PROTEIN URINE NEGATIVE (NEGATIVE); TURBIDITY URINE CLEAR (CLEAR); UROBILINOGEN URINE NORMAL (NORMAL)
[2019-04-23 21:13] LABS: UR EPITHELIAL CELLS <10 /HPF (<10); URINE BACTERIA NEGATIVE /HPF; URINE RBC <10 /HPF (<10)
[2019-04-23 21:20] LABS: URINE CASTS NONE SEEN; URINE CRYSTALS NONE SEEN; URINE SMALL ROUND CELLS TRANS PRESENT; URINE YEAST PRESENT
[2019-04-23] MEDS ORDERED: KLOR-CON PO ONE (22:43)
[2019-04-23] MEDS ORDERED: ZOFRAN IV PRN (23:48)
[2019-04-24] MEDS: HEPARIN SUBQ SCH ×2 (00:13→11:25)
[2019-04-24] MEDS: POTASSIUM CHLORIDE 10 MEQ in NS 1,000 ML IV SCH ×2 (00:13→07:58)
[2019-04-24 05:21] LABS: BASO# 0.02 X1000 (0.0-0.2); BASO% 0.3 % (0.0-0.8); EOS# 0.13 X1000 (0.0-0.7); EOS% 1.9 % (0.0-10.0); HEMATOCRIT 34.2 % (37.0-47.0); HEMOGLOBIN 10.9 g/dL (12.0-16.0); IMM GRAN# 0.03 X1000 (0.0-0.04); IMM GRAN% 0.4 % (0.0-0.5); LYMPH# 2.93 X1000 (1.2-3.4); MCH 29.9 PG (27-31); MCHC 31.9 g/dL (33-37); MCV 93.7 FL (81-99); MONO# 0.81 X1000 (0.11-0.59); MONO% 11.6 % (1.7-9.3); MPV 9.7 FL (7.4-10.4); NEUT# 3.05 X1000 (1.4-6.5); NEUT% 43.8 % (42.2-75.2); PLT 350 X1000 (130-400); RBC 3.65 XMIL (4.2-5.4); RDW 13.4 % (11.5-14.5); WBC 6.97 X1000 (4.8-10.8)
[2019-04-24 05:53] LABS: CALCIUM 8.5 mg/dL (8.8-10.2); CREATININE 1.8 mg/dL (0.5-0.9); MAGNESIUM 2.5 mg/dL (1.5-2.7); POTASSIUM 3.4 mmol/L (3.5-5.1)
[2019-04-24] MEDS ORDERED: PRED FORTE 1% OPH SUSPENSION BOTH EYES SCH ×2 (09:00→21:00)
[2019-04-24] MEDS: ASPIRIN EC PO SCH (09:14)
[2019-04-24] MEDS: TOPROL XL PO SCH (09:16)
[2019-04-24] MEDS: COMBIGAN OPHTH SOLN BOTH EYES SCH ×2 (11:26→20:42)
[2019-04-24] MEDS: TYLENOL PO PRN (15:13)
[2019-04-25] MEDS: HEPARIN SUBQ SCH (02:07)
[2019-04-25 05:38] LABS: HEMATOCRIT 29.6 % (37.0-47.0); HEMOGLOBIN 9.4 g/dL (12.0-16.0); MCH 30.6 PG (27-31); MCHC 31.8 g/dL (33-37); MCV 96.4 FL (81-99); MPV 10.2 FL (7.4-10.4); RBC 3.07 XMIL (4.2-5.4); RDW 13.7 % (11.5-14.5); WBC 5.58 X1000 (4.8-10.8)
[2019-04-25 05:51] LABS: INR 1.09; PROTIME 14.3 Seconds (11.0-16.0)
[2019-04-25 06:02] LABS: ALB/GLOB RATIO 1.3; ALBUMIN 3.5 g/dL (3.5-5.0); CALCIUM 8.8 mg/dL (8.8-10.2); CREATININE 1.1 mg/dL (0.5-0.9); POTASSIUM 3.1 mmol/L (3.5-5.1); TOTAL BILIRUBIN 0.21 mg/dL (0.20-1.00); TOTAL PROTEIN 6.3 g/dL (6.3-8.3)
[2019-04-25 06:16] LABS: FERRITIN 288 ng/mL (13-150)
[2019-04-25] MEDS: ASPIRIN EC PO SCH (09:54)
[2019-04-25] MEDS: TOPROL XL PO SCH (09:54)
[2019-04-25] MEDS: TYLENOL PO PRN (09:55)
[2019-04-25] MEDS: COMBIGAN OPHTH SOLN BOTH EYES SCH (10:00)
[2019-04-25 12:04] VITALS: BP 137/55
[2019-04-28 21:20] LABS: TISSUE TRANSGLUTAMINASE IGA SEE COMMENTS
== END 2019-04-25 12:57 | disposition home or self-care (01) ==
LOC: ED 19:01 → SUATTDRO 23:19 → 1N 23:19
PROVIDERS: ATTEND Internal Medicine